=== PATIENT | female | born 1990 | race American Indian/Alaskan Native ===

== ENCOUNTER 2016-12-29 10:54 | Emergency (ER) | payer MEDICAID ==
[2016-12-29 11:50] VITALS: BP 114/64
--- NOTE | 2016-12-29 11:53 | Emergency Department Report ---
Chief Complaint: Urogenital-Female Stated Complaint: ABD PAIN Time Seen by Provider: 12/29/16 11:52 - HPI History of Present Illness: pt c/o lower abd pain and discharge - ROS Review of Systems: - dysuria + white vaginal discharge - Exam Vital Signs: Vital Signs 12/29/16 11:47 Temperature 98.4 F Pulse Rate 69 Respiratory 16 Rate Blood Pressure 114/64 O2 Sat by Pulse 100 Oximetry Physical Exam: pt looks well, non toxic. steady gait MSE screening note: Focused history and physical exam performed. Due to findings the following was ordered: labs ED Disposition for MSE Condition: Stable
[2016-12-29 12:33] LABS: Bacteria,Urine 1+ /HPF (Negative); Bilirubin,Urine NEG (Negative); Blood,Urine NEG (Negative); Ketones,Urine TR mg/dL (Negative); Leukocyte Esterase,Urine NEG (Negative); Mucus,Urine 3+ /HPF; Nitrite,Urine NEG (Negative); Urobilinogen,Urine < 2.0 mg/dL (<2.0)
[2016-12-29 13:33] LABS: Basophils % (Auto) 0.4 % (0.0-1.8); Eosinophils % (Auto) 0.7 % (0.0-4.3); Hematocrit 41.7 % (30.3-42.9); Hemoglobin 13.6 gm/dl (10.1-14.3); Mean Corpuscular HGB Conc 33 % (30-34); Mean Corpuscular Hemoglobin 29 pg (28-32); Mean Corpuscular Volume 90 fl (79-97); Platelet Count 230 K/mm3 (140-440); Red Blood Count 4.63 M/mm3 (3.65-5.03); Red Cell Distribution Width 12.6 % (13.2-15.2); White Blood Count 4.4 K/mm3 (4.5-11.0)
[2016-12-29 13:51] LABS: Anion Gap 15 mmol/L; BUN/Creatinine Ratio 22.85; Blood Urea Nitrogen 16 mg/dL (7-17); Calcium 8.7 mg/dL (8.4-10.2); Carbon Dioxide 30 mmol/L (22-30); Chloride 102.3 mmol/L (98-107); Glucose 85 mg/dL (65-100); Potassium 3.9 mmol/L (3.6-5.0); Sodium 143 mmol/L (137-145)
[2016-12-29 15:02] LABS: Amylase 117 units/L (27-131); Lipase 38 units/L (13-60)
--- NOTE | 2016-12-29 15:32 | Cat Scan Report ---
CT SCAN OF THE ABDOMEN AND PELVIS WITH CONTRAST: HISTORY: Abdominal pain. TECHNIQUE: Helical CT in 1.25mm intervals following IV contrast. Sagittal and coronal reconstructions. FINDINGS: The liver is normal in size and is without focal defect. No gallstones or biliary dilatation are noted. The spleen and pancreas demonstrate a normal size and attenuation with no evidence of abnormal mass. The kidneys are normal in size and position with no evidence of hydronephrosis or mass. The adrenal glands are normal. There is no intestinal obstruction or ascites. Normal appendix. The abdominal aorta is normal. The uterus is unremarkable. There is a 1.1 cm right ovarian cyst and a 1.5 cm left ovarian cyst. Trace pelvic ascites. There is no evidence of peritoneal air. There is no evidence of any abnormal masses or fluid collections within the pelvis. No adenopathy is identified. The bladder is normal. IMPRESSION: Bilateral ovarian cysts. Trace pelvic ascites.
--- NOTE | 2016-12-29 21:45 | Emergency Department Report ---
Entered by ADRIANA PAYNE, acting as scribe for GRACIA BRYANT NP. ED Female HPI - General Chief complaint: Urogenital-Female Stated complaint: ABD PAIN Time Seen by Provider: 12/29/16 11:52 Source: patient Mode of arrival: Ambulatory Limitations: No Limitations - History of Present Illness Initial comments: This is a 26 y/o female, nontoxic, well nourished in appearance, no acute signs of distress with no significant PMHx presents to the ED c/o gradually worsening low pelvic pain today. Rates pain an 8/10 in severity, which she describes as sharp and cramping in quality. Aggravated with nothing and alleviated with nothing. Associated symptom includes "cottage cheese" white vaginal discharge with no odor, but she denies diarrhea, constipation, dysuria, urgency, frequency , fever, chills, chest pain, SOB, PUGA or dizziness, numbness, tingling. Patient states her pain began during the onset of her menstrual period, but she states her pain continued to persist. Denies a possibility of being exposed to an STD. Patient states she was tested for STDs 3 months ago with negative findings, but she reports she's been sexually active since then. LMP 12/12/2016. NKDA. [place] Complaint: vaginal discharge (white), pelvic pain -: Gradual Location: other (low pelvic) Radiation: non-radiating Severity scale (0 -10): 8 Quality: cramping, sharp Consistency: constant Improves with: none Worsens with: none Are you Now?: No Last Menstrual Period: 12/12/16 EDC: 09/18/17 Associated Symptoms: denies other symptoms, vaginal discharge (white), other ( pelvic pain). denies: vaginal bleeding, abdominal pain, nausea/vomiting, fever/ chills, headaches, loss of appetite, dysuria, hematuria, rash, seizure, shortness of breath, syncope, weakness - Related Data Sexually active: Yes Previous Rx's Medication Instructions Recorded Last Taken Type Ondansetron [Zofran Odt] 4 mg PO Q4-6H PRN #20 tab.rapdis 05/31/13 06/20/13 20: 00 Rx 4mg Pnv95/Ferrous Fumarate/FA 1 each PO QDAY #90 tablet 05/31/13 01/03/14 08:00 Rx [ Vitamins] Nitrofurantoin (Nf) [Furadantin 100 mg PO Q6H #28 bottle 09/05/13 Unknown Rx ORAL LIQ] Ferrous Sulfate [Feosol 325 MG tab] 325 mg PO BID #60 tablet 01/28/14 Unknown Rx HYDROcodone/APAP 5-325 [[place] 1 each PO Q6HR PRN #30 tablet 01/28/14 Unknown Rx 5/325] Ibuprofen [Motrin] 800 mg PO Q8H PRN #30 tablet 01/28/14 Unknown Rx [id number]/Iron Fumarate/FA/Dss 1 each PO QDAY #30 tablet 01/28/14 Unknown Rx [ 19 Tablet] Naproxen [Naprosyn TAB] 500 mg PO BID #30 tablet 04/20/14 Unknown Rx traMADol [Ultram 50 MG tab] 50 mg PO Q6HR PRN #14 tablet 04/20/14 Unknown Rx metroNIDAZOLE [Flagyl] 500 mg PO Q12HR #14 tab 12/29/16 Unknown Rx Allergies Allergy/AdvReac Type Severity Reaction Status Date / Time No Known Allergies Allergy Verified 09/04/13 20:42 ED Review of Systems Comment: All other systems reviewed and negative Constitutional: denies: chills, fever Eyes: denies: eye pain, eye discharge, vision change ENT: denies: ear pain, throat pain Respiratory: denies: cough, orthopnea, shortness of breath, SOB with exertion, SOB at rest, stridor, wheezing Cardiovascular: denies: chest pain, palpitations, dyspnea on exertion, orthopnea , edema, syncope, paroxysmal nocturnal dyspnea Endocrine: no symptoms reported Gastrointestinal: other (pelvic pain). denies: abdominal pain (low pelvic pain) , nausea, vomiting, diarrhea, constipation, hematemesis, melena Genitourinary: discharge (white "cottage cheese"). denies: urgency, dysuria, frequency, hematuria, abnormal menses, dyspareunia Musculoskeletal: denies: back pain, joint swelling, arthralgia Skin: denies: rash, lesions Neurological: denies: headache, weakness, numbness, paresthesias Psychiatric: denies: anxiety, depression Hematological/Lymphatic: denies: easy bleeding, easy bruising ED Past Medical Hx - Past Medical History Previous Medical History?: Yes Hx Hypertension: No Hx Congestive Heart Failure: No Hx Diabetes: No Hx Deep Vein Thrombosis: No Hx Renal Disease: No Hx Sickle Cell Disease: No Hx Seizures: No Hx Asthma: No Hx COPD: No Hx HIV: No Additional medical history: "weak uterus" - Surgical History Past Surgical History?: Yes Additional Surgical History: D&C - Family History Family history: no significant - Social History Smoking Status: Never Smoker Substance Use Type: Alcohol - Medications Home Medications: Home Medications Medication Instructions Recorded Confirmed Last Taken Type Ondansetron [Zofran Odt] 4 mg PO Q4-6H PRN #20 tab.rapdis 05/31/13 01/29/1402/21 20:00 Rx 4mg Pnv95/Ferrous Fumarate/FA 1 each PO QDAY #90 tablet 05/31/13 01/29/14 01/03/14 08:00 Rx [ Vitamins] Nitrofurantoin (Nf) [Furadantin 100 mg PO Q6H #28 bottle 09/05/13 01/29/14 Unknown Rx ORAL LIQ] Ferrous Sulfate [Feosol 325 MG tab] 325 mg PO BID #60 tablet 01/28/14 Unknown Rx HYDROcodone/APAP 5-325 [[place] 1 each PO Q6HR PRN #30 tablet 01/28/14 Unknown Rx 5/325] Ibuprofen [Motrin] 800 mg PO Q8H PRN #30 tablet 01/28/14 Unknown Rx Rhz500/Iron Fumarate/FA/Dss 1 each PO QDAY #30 tablet 01/28/14 Unknown Rx [ 19 Tablet] Naproxen [Naprosyn TAB] 500 mg PO BID #30 tablet 04/20/14 Unknown Rx traMADol [Ultram 50 MG tab] 50 mg PO Q6HR PRN #14 tablet 04/20/14 Unknown Rx metroNIDAZOLE [Flagyl] 500 mg PO Q12HR #14 tab 12/29/16 Unknown Rx ED Physical Exam - General Limitations: No Limitations General appearance: alert, in no apparent distress - Head Head exam: Present: atraumatic, normocephalic - Eye Eye exam: Present: normal appearance, PERRL, EOMI. Absent: scleral icterus, conjunctival injection, nystagmus, periorbital swelling, periorbital tenderness Pupils: Present: normal accommodation - ENT ENT exam: Present: normal exam, normal orophraynx, mucous membranes moist, TM's normal bilaterally, normal external ear exam - Neck Neck exam: Present: normal inspection, full ROM. Absent: tenderness, meningismus, lymphadenopathy - Respiratory Respiratory exam: Present: normal lung sounds bilaterally. Absent: respiratory distress, wheezes, rales, rhonchi, stridor, chest wall tenderness, accessory muscle use, decreased breath sounds - Cardiovascular Cardiovascular Exam: Present: regular rate, normal rhythm, normal heart sounds. Absent: systolic murmur, diastolic murmur, rubs, gallop - GI/Abdominal GI/Abdominal exam: Present: soft, normal bowel sounds. Absent: distended, tenderness, guarding, rebound, rigid - Expanded GI/Abdominal Exam Expanded GI/Abdominal exam: Absent: psoas sign, obturator sign, heel tap sign, Matamoros's sign, Rovsing's sign, tenderness at [place], ascites - Rectal Rectal exam: Present: deferred - External exam: Present: normal external exam, other (Adriana Elmer assisted me as the female prepress specialist during the pelvic exam). Absent: erythema, swelling , lesions, lacerations, ecchymosis, bleeding Speculum exam: Present: vaginal discharge (white "cottage cheese" with a foul odor), other (Adriana Elmer assisted me as the female prepress specialist during the pelvic exam). Absent: normal speculum exam, erythema, cervical discharge, vaginal bleeding, foreign body, tissue, laceration Bi-manual exam: Present: normal bi-manual exam. Absent: cervical motion tendernes, adnexal tenderness, adnexal mass, uterine enlargement, uterine tenderness - Expanded Exam Expanded Female exam: Present: deferred. Absent: vaginal laceration, tissue present in vagina, herpetic lesions, vulvar erythema, vulvar tenderness, foreign body External exam: Present: normal Speculum exam: Present: cervical OS closed, vaginal discharge (white "cottage cheese" with foul odor). Absent: vaginal bleeding - Extremities Exam Extremities exam: Present: normal inspection, full ROM, normal capillary refill. Absent: tenderness, pedal edema, joint swelling, calf tenderness - Back Exam Back exam: Present: normal inspection, full ROM. Absent: tenderness, CVA tenderness (R), CVA tenderness (L), muscle spasm, paraspinal tenderness, vertebral tenderness, rash noted - Neurological Exam Neurological exam: Present: alert, oriented X3, CN II-XII intact, normal gait, reflexes normal. Absent: motor sensory deficit - Psychiatric Psychiatric exam: Present: normal affect, normal mood - Skin Skin exam: Present: warm, dry, intact. Absent: rash ED Course Vital Signs 12/29/16 11:47 Temperature 98.4 F Pulse Rate 69 Respiratory 16 Rate Blood Pressure 114/64 O2 Sat by Pulse 100 Oximetry - Reevaluation(s) Reevaluation #1: 12/29/16 14:59 Patient is speaking in full sentences with no signs of distress noted. - Consultations Consultation #1: 12/29/16 15:37 Patient was consulted with Dr. Bailey and agrees to discharge plan of care with follow-up. ED Medical Decision Making - Lab Data Result diagrams: 12/29/16 13:21 12/29/16 13:21 - Medical Decision Making ED course; this is a 26-year-old female that presents with bilateral ovarian cysts and vaginal discharge 1- patient was examined myself. Patient is stable. CT scan of abdomen/pelvis with contrast has been obtained. Dictated by Dr. Carlos. Impression; bilateral ovarian cyst. Trace of pelvic ascites. CT scan has been consulted with Dr. Bailey which agrees to plan of care and discharge follow-up. 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 2- patient received Flagyl at discharge due to her cottage cheese vaginal discharge. 3- CBC, BMP, lipase, amylase, UA, GC, and wet prep has been obtained. Patient was instructed to return in 3 days medical records to obtain gonorrhea/ Chlamydia results. 4- At time time of discharge, the patient does not seem toxic or ill in appearance. No acute signs of distress noted. Patient agrees to discharge treatment plan of care. No further questions noted by the patient. 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 Take full course of antibiotics that was prescribed. Do not drink any alcohol while taking Flagyl. Prescriptions: metroNIDAZOLE [Flagyl] 500 mg PO Q12HR #14 tab Referrals: PRIMARY CARE,MD [Primary Care Provider] - 3-5 Days BRITTANY BAH MD [Staff Physician] - 3-5 Days [facility] [Outside] - 3-5 Days [facility] [Outside] - 3-5 Days Forms: Work/School Release Form(ED) This documentation as recorded by the ELMER castelan JASMINE,accurately reflects the service I personally performed and the decisions made by ,GRACIA BRYANT, TAKE AWAY MAN.
== END 2016-12-29 15:53 | disposition home or self-care (01) ==
LOC: ED 10:54
DX: N83.202 Unspecified ovarian cyst, left side (principal); N83.201 Unspecified ovarian cyst, right side; N89.8 Other specified noninflammatory disorders of vagina; R18.8 Other ascites
CPT/HCPCS: 36415; 74177; 80048; 81001; 81025; 82150; 83690; 85025; 87210; 87591; 99284; Q9967